=== PATIENT | male | born 1950 | race Caucasian/White ===

== ENCOUNTER 2019-05-16 12:19 | Emergency (ER) | payer OTHER ==
[2019-05-16] MEDS ORDERED: NA CHLORIDE 0.9% 500 ML ONE (13:17)
[2019-05-16 13:27] LABS: Absolute Lymphocytes (CBC) 0.9 K/uL (0.7-4.9); Basophils % 0.9 % (0-1.3); Hematocrit 38.5 % (39.6-49.0); Lymphocytes % 13.2 % (15.3-44.8); MPV 9.2 fL (7.6-11.3); RBC Red Blood Cell Count 4.23 M/uL (4.33-5.43)
[2019-05-16 13:48] LABS: Albumin 3.4 g/dL (3.4-5.0); Bilirubin Direct 0.2 mg/dL (0-0.2); Bilirubin Total 0.7 mg/dL (0.2-1.0); Potassium 3.7 mmol/L (3.5-5.1); Protein, Total 6.3 g/dL (6.4-8.2)
--- NOTE | 2019-05-16 14:41 | RAD REPORT ---
EXAM DESCRIPTION: CT - Abdomen Pelvis W Contrast - 05/16/2019 2:26 pm CLINICAL HISTORY: Abdominal pain COMPARISON: 2007 TECHNIQUE: Computed axial tomography of the abdomen pelvis was obtained. 100 cc Isovue-300 was admin istered intravenously. Oral contrast was not requested which limits evaluation of bowel. All CT scans are performed using dose optimization technique as appropriate and may include automated exposure control or mA/KV adjustment according to patient size. FINDINGS: The liver, spleen, pancreas, adrenal and kidneys appear unremarkable. There is no evidence of diverticulitis. Normal appendix Mild to moderate anterior subluxation L5 on S1. Spondylolysis L5. Degenerative changes involve verteb ral endplate of L1 Small inguinal hernias contain fat. Prostate gland mildly enlarged Moderate amount stool throughout the colon IMPRESSION: Moderate amount stool throughout the colon
--- NOTE | 2019-05-16 15:06 | ER ---
Nurse's Notes [facility] Name: Shelton Orr Age: 68 yrs Sex: Male : 1950 Arrival Date: 05/16/2019 Time: 12:21 Bed 19 Private MD: Diagnosis: Abdominal and pelvic pain;Constipation Presentation: 05/16 12:45 Presenting complaint: Patient states: Patient states he has had LUQ pain on and off ae4 over the last few weeks, and frequent belching. Transition of care: patient was not received from another setting of care. Onset of symptoms was May 09, 2019 at 08:00. Risk Assessment: Do you want to hurt yourself or someone else? Patient reports no desire to harm self or others. Initial Sepsis Screen: Does the patient meet any 2 criteria? No. Patient's initial sepsis screen is negative. Does the patient have a suspected source of infection? No. Patient's initial sepsis screen is negative. Care prior to arrival: None. 12:45 Method Of Arrival: Ambulatory ae4 12:45 Acuity: LEX 3 ae4 Triage Assessment: 13:06 Headache History: The patient has had previous headaches and this one is similar to ae4 previous episodes. General: Appears in no apparent distress. comfortable, well groomed, Behavior is calm, cooperative. Pain: Complains of pain in left upper quadrant Pain currently is 0 out of 10 on a pain scale. at worst was 3 out of 10 on a pain scale. Pain: Pain began gradually, 2-3 days ago. Also complains of nausea. Pain: Also complains of Belching. EENT: No signs and/or symptoms were reported regarding the EENT system. Neuro: Level of Consciousness is awake, alert, obeys commands, Oriented to person, place, time, situation, Appropriate for age. Cardiovascular: Patient's skin is warm and dry. Respiratory: Airway is patent Respiratory effort is even, unlabored, Respiratory pattern is regular, symmetrical, Breath sounds are clear bilaterally. GI: Abdomen is round Bowel sounds present X 4 quads. GI: Reports lower abdominal pain, gaseousness, nausea. : No signs and/or symptoms were reported regarding the genitourinary system. Denies burning with urination, urinary frequency. Derm: No signs and/or symptoms reported regarding the dermatologic system. Skin is pink, warm \T\ dry. Musculoskeletal: No signs and/or symptoms reported regarding the musculoskeletal system. Historical: - Allergies: 12:53 No Known Allergies; ae4 - Home Meds: 12:53 acyclovir 800 mg Oral tab [Active]; losartan 100 mg oral tab [Active]; meloxicam 15 mg ae4 oral tab [Active]; aspirin 81 mg Oral chew 2 tabs once daily [Active]; finasteride 5 mg oral tab 1 tab once daily [Active]; rosuvastatin 10 mg oral tab [Active]; amlodipine 5 mg tab [Active]; - PMHx: 12:53 Hypertension; ae4 - Immunization history:: Adult Immunizations up to date. - Social history:: Smoking status: Patient/guardian denies using tobacco. - Ebola Screening: : Patient negative for fever greater than or equal to 101.5 degrees Fahrenheit, and additional compatible Ebola Virus Disease symptoms. Screenin:06 Abuse screen: Denies threats or abuse. Nutritional screening: No deficits noted. ae4 Tuberculosis screening: No symptoms or risk factors identified. Fall Risk None identified. Assessment: 13:10 GI: Abd is soft and non tender. ae4 13:58 Reassessment: Patient appears in no apparent distress at this time. No changes from ae4 previously documented assessment. Patient and/or family updated on plan of care and expected duration. Pain level reassessed. Patient denies pain at this time. 15:00 Reassessment: No changes from previously documented assessment. Patient and/or family ae4 updated on plan of care and expected duration. Pain level reassessed. Patient denies pain at this time. Pain: Denies pain. 15:00 Reassessment: See full triage assessment. ae4 Vital Signs: 12:39 BP 145 / 72; Pulse 73; Resp 16; Temp 98(O); Pulse Ox 98% on R/A; Weight 86.18 kg (R); ae4 13:53 BP 139 / 83; Pulse 67; Resp 16; Pulse Ox 100% on R/A; ae4 ED Course: 12:21 Patient arrived in ED. as 12:38 Rafa Diehl RN is Primary Nurse. ae4 12:42 Glenn Morgan MD is Attending Physician. kdr 12:50 Triage completed. ae4 12:54 Bed in low position. Call light in reach. Side rails up X 1. Adult w/ patient. Pulse ox ae4 on. NIBP on. 13:05 Inserted saline lock: 20 gauge in right antecubital area, using aseptic technique. ae4 Blood collected. 13:06 Arm band placed on right wrist. ae4 14:26 CT Abd/Pelvis - IV Contrast Only In Process Unspecified. EDMS 15:19 No provider procedures requiring assistance completed. IV discontinued, intact, ae4 bleeding controlled, No redness/swelling at site. Pressure dressing applied. Administered Medications: 13:34 Drug: NS 0.9% 500 ml Route: IV; Rate: bolus; Site: right antecubital; 13:57 Follow up: IV Status: Completed infusion; IV Intake: 1000ml ae4 14:59 Follow up: IV Status: Completed infusion; IV Intake: 500ml ae4 Intake: 13:57 IV: 1000ml; Total: 1000ml. ae4 14:59 IV: 500ml; Total: 1500ml. ae4 Outcome: 15:05 Discharge ordered by . kdr 15:19 Discharged to home ambulatory. ae4 15:19 Condition: stable 15:19 Discharge instructions given to patient, significant other, Instructed on discharge instructions, follow up and referral plans. medication usage, Demonstrated understanding of instructions, Prescriptions given X 4. 15:20 Patient left the ED. ae4 Signatures: Dispatcher [employer] EDMS Jodie Bright, RN RN Glenn Morgan MD MD kdr Martinez, Amelia as Elliott, Andrea, RN RN ae4
--- NOTE | 2019-05-16 15:07 | EDPHYS ---
Physician Documentation [facility] Name: Shelton Orr Age: 68 yrs Sex: Male : 1950 Arrival Date: 05/16/2019 Time: 12:21 Bed 19 Private MD: ED Physician Glenn Morgan HPI: 05/16 14:11 This 68 yrs old Male presents to ER via Ambulatory with complaints of Abd kdr Pain > 50 y/o. 14:11 The patient presents with abdominal pain in the upper abdomen. Onset: The kdr symptoms/episode began/occurred gradually, 2 week(s) ago, and became persistent. The symptoms do not radiate. Associated signs and symptoms: Pertinent positives: nausea, Pertinent negatives: blood in stools, chest pain, constipation, diarrhea, dysuria, fever, headache, palpitations, shortness of breath, testicular pain, vomiting, vomiting blood, Belching. The symptoms are described as achy, crampy, intermittent, vague, waxing/waning. Modifying factors: The symptoms are alleviated by nothing, the symptoms are aggravated by nothing. Severity of pain: At its worst the pain was mild moderate in the emergency department the pain has improved moderately. The patient has not experienced similar symptoms in the past. The patient has not recently seen a physician. Historical: - Allergies: 12:53 No Known Allergies; ae4 - Home Meds: 12:53 acyclovir 800 mg Oral tab [Active]; losartan 100 mg oral tab [Active]; meloxicam 15 mg ae4 oral tab [Active]; aspirin 81 mg Oral chew 2 tabs once daily [Active]; finasteride 5 mg oral tab 1 tab once daily [Active]; rosuvastatin 10 mg oral tab [Active]; amlodipine 5 mg tab [Active]; - PMHx: 12:53 Hypertension; ae4 - Immunization history:: Adult Immunizations up to date. - Social history:: Smoking status: Patient/guardian denies using tobacco. - Ebola Screening: : Patient negative for fever greater than or equal to 101.5 degrees Fahrenheit, and additional compatible Ebola Virus Disease symptoms. ROS: 14:11 Constitutional: Negative for fever, chills, and weight loss, Eyes: Negative for injury, kdr pain, redness, and discharge, Neck: Negative for injury, pain, and swelling, Cardiovascular: Negative for chest pain, palpitations, and edema, Respiratory: Negative for shortness of breath, cough, wheezing, and pleuritic chest pain, Back: Negative for injury and pain, : Negative for injury, bleeding, discharge, and swelling, MS/Extremity: Negative for injury and deformity, Skin: Negative for injury, rash, and discoloration, Neuro: Negative for headache, weakness, numbness, tingling, and seizure activity. Psych: Negative for depression, anxiety, suicide ideation, homicidal ideation, and hallucinations, Allergy/Immunology: Negative for hives, rash, and allergies, Endocrine: Negative for neck swelling, polydipsia, polyuria, polyphagia, and marked weight changes, Hematologic/Lymphatic: Negative for swollen nodes, abnormal bleeding, and unusual bruising. 14:11 Abdomen/GI: Positive for abdominal pain, nausea, Negative for diarrhea, constipation, anorexia, dysphagia, hematemesis, black/tarry stool, rectal pain, rectal bleeding, bowel incontinence. Exam: 14:11 Constitutional: This is a well developed, well nourished patient who is awake, alert, kdr and in no acute distress. Head/Face: Normocephalic, atraumatic. Eyes: Pupils equal round and reactive to light, extra-ocular motions intact. Lids and lashes normal. Conjunctiva and sclera are non-icteric and not injected. Cornea within normal limits. Periorbital areas with no swelling, redness, or edema. Neck: Trachea midline, no thyromegaly or masses palpated, and no cervical lymphadenopathy. Supple, full range of motion without nuchal rigidity, or vertebral point tenderness. No Meningismus. Chest/axilla: Normal chest wall appearance and motion. Nontender with no deformity. No lesions are appreciated. Cardiovascular: Regular rate and rhythm with a normal S1 and S2. No gallops, murmurs, or rubs. Normal PMI, no JVD. No pulse deficits. Respiratory: Lungs have equal breath sounds bilaterally, clear to auscultation and percussion. No rales, rhonchi or wheezes noted. No increased work of breathing, no retractions or nasal flaring. Abdomen/GI: Soft, non-tender, with normal bowel sounds. No distension or tympany. No guarding or rebound. No evidence of tenderness throughout. Back: No spinal tenderness. No costovertebral tenderness. Full range of motion. Skin: Warm, dry with normal turgor. Normal color with no rashes, no lesions, and no evidence of cellulitis. MS/ Extremity: Pulses equal, no cyanosis. Neurovascular intact. Full, normal range of motion. Neuro: Awake and alert, GCS 15, oriented to person, place, time, and situation. Cranial nerves II-XII grossly intact. Motor strength 5/5 in all extremities. Sensory grossly intact. Cerebellar exam normal. Normal gait. Psych: Awake, alert, with orientation to person, place and time. Behavior, mood, and affect are within normal limits. Vital Signs: 12:39 BP 145 / 72; Pulse 73; Resp 16; Temp 98(O); Pulse Ox 98% on R/A; Weight 86.18 kg (R); ae4 13:53 BP 139 / 83; Pulse 67; Resp 16; Pulse Ox 100% on R/A; ae4 MDM: 14:11 Data reviewed: vital signs, nurses notes, lab test result(s), radiologic studies. kdr Counseling: I had a detailed discussion with the patient and/or guardian regarding: the historical points, exam findings, and any diagnostic results supporting the discharge/admit diagnosis, lab results, radiology results. 15:05 [facility] screened. [facility] 12:42 Order name: Basic Metabolic Panel; Complete Time: 14:09 [facility] 05/[facility] 12:42 Order name: CBC with Diff; Complete Time: 14:09 [facility] 05/16 12:42 Order name: Creatinine for Radiology; Complete Time: 14:09 [facility] 05/16 12:42 Order name: Hepatic Function; Complete Time: 14:09 [facility] 05/16 12:42 Order name: Lipase; Complete Time: 14:09 [facility] 05/16 13:04 Order name: CT Abd/Pelvis - IV Contrast Only; Complete Time: 14:59 [facility] 05/16 12:42 Order name: IV Saline Lock; Complete [facility]: 13:02 [facility] 05/16 12:42 Order name: Labs collected and sent; Complete Time: 13:02 kdr Administered Medications: 13:34 Drug: NS 0.9% 500 ml Route: IV; Rate: bolus; Site: right antecubital; ch 13:57 Follow up: IV Status: Completed infusion; IV Intake: 1000ml ae4 14:59 Follow up: IV Status: Completed infusion; IV Intake: 500ml ae4 Disposition: 05/16/19 15:06 Discharged to Home. Impression: Abdominal and pelvic pain, Constipation. - Condition is Stable. - Discharge Instructions: Constipation, Adult, [id number], Abdominal Pain, Adult, [id number]. - Prescriptions for Bentyl 20 mg Oral Tablet - take 1 tablet by ORAL route every 6 hours As needed; 20 tablet. Pepcid 20 mg Oral Tablet - take 1 tablet by ORAL route every 12 hours for 5 days; 10 tablet. Zofran 4 mg Oral Tablet - take 1 tablet by ORAL route every 12 hours As needed; 6 tablet. Miralax 17 gram/dose Oral - take 1 packet by ORAL route once daily dilute powder in 8 ounces of water or juice; 1 box. - Medication Reconciliation Form, Thank You Letter form. - Follow up: Private Physician; When: 2 - 3 days; Reason: If symptoms return, Further diagnostic work-up, Recheck today's complaints, Continuance of care, Re-evaluation by your physician. - Problem is new. - Symptoms have improved. Signatures: Dispatcher [employer] EDMS Jodie Bright RN RN ch Glenn Morgan MD MD kdr Rafa Diehl RN RN ae4 Corrections: (The following items were deleted from the chart) 15:20 15:06 05/16/2019 15:06 Discharged to Home. Impression: Abdominal and pelvic pain; ae4 Constipation. Condition is Stable. Forms are Medication Reconciliation Form, Thank You Letter, Antibiotic Education, Prescription Opioid Use. Follow up: Private Physician; When: 2 - 3 days; Reason: If symptoms return, Further diagnostic work-up, Recheck today's complaints, Continuance of care, Re-evaluation by your physician. Problem is new. Symptoms have improved. kdr
[2019-05-16 15:39] VITALS: TEMP 98
[2019-05-16 15:40] VITALS: BP 139/83; O2SAT 100
== END 2019-05-16 15:20 | disposition home or self-care (01) ==
LOC: ER 12:19
DX: K59.00 Constipation, unspecified (principal); I10 Essential (primary) hypertension; Z79.82 Long term (current) use of aspirin
CPT/HCPCS: 85025; 80048; 36415; 80076; 83690; 74177; 99284; Q9967; J7040

== ENCOUNTER 2021-06-15 06:53 | Day surgery (SDC) | payer OTHER ==
[2021-06-15] MEDS ORDERED: Ringers Lactate 1,000 ML IV ONE (07:12)
[2021-06-15] MEDS ORDERED: propofoL 200 MG/20 ML VIAL IV ONE (08:04)
--- NOTE | 2021-06-15 08:39 | ENDO RPT ---
[address], [address] COLONOSCOPY PROCEDURE REPORT EXAM DATE: 06/15/2021 PATIENT NAME: Shelton Orr MR #: [id number] BIRTHDATE: 1950 ATTENDING: Kerwin Armendariz MD STATUS: outpatient SUPERVISOR FACEPIECE LINE: Oumar Peters CST and Jennifer Self RN INDICATIONS: The patient is a 71 yr old Male here for a colonoscopy due to Cologuard positive and surveillance PROCEDURE PERFORMED: Colonoscopy MEDICATIONS: Per Anesthesia. ESTIMATED BLOOD LOSS: None CONSENT: The patient understands the risks and benefits of the procedure and understands that these risks include, but are not limited to: sedation, allergic reaction, infection, perforation and/or bleeding. Alternative means of evaluation and treatment include, among others: physical exam, x-rays, and/or surgical intervention. The patient elects to proceed with this endoscopic procedure. DESCRIPTION OF PROCEDURE: During intra-op preparation period all mechanical medical equipment was checked for proper function. Hand hygiene and appropriate measures for infection prevention was taken. Procedure, possible complications, alternatives including, but not limited to possibility of bleeding, perforation, tear, infection, sepsis, need for surgery, need for blood transfusion, were explained to the patient. After the risks, benefits and alternatives of the procedure were thoroughly explained, Informed consent was verified, confirmed and timeout was successfully executed by the treatment team. The patient was placed in the left lateral position. A digital rectal exam was performed and revealed external hemorrhoids. After appropriate level of anesthesia, the scope was passed. The [id number] ([id number]) endoscope was introduced through the anus and advanced to the cecum, which was identified by transillumination from the light source, the appendix, and the ileocecal valve. The quality of the prep was good. The instrument was then slowly withdrawn as the colon was fully examined. Scope withdrawal time was . COLON FINDINGS: Diverticula was found in the sigmoid colon. The opening was small. Retroflexed views revealed no abnormalities. The scope was then completely withdrawn from the patient and the procedure terminated. ADVERSE EVENTS: There were no complications. IMPRESSIONS: 1. Diverticula in the sigmoid colon 2. External hemorrhoids 3. Internal hemorrhoids RECOMMENDATIONS: follow-up: office 1-2 week(s) RECALL: Return in 5 year(s) for Colonoscopy. Kerwin Armendariz MD eSigned: Kerwin Armendariz MD 06/15/2021 8:39 AM cc: Kerwin Armendariz M.D. CPT CODES: ICD9 CODES: PATIENT NAME: Shelton Orr MR#: [id number]
[2021-06-15 10:10] VITALS: BP 144/75; TEMP 97.9; O2SAT 100
== END 2021-06-15 09:00 | disposition home or self-care (01) ==
LOC: OR 06:53
PROVIDERS: ATTEND Surgery
PROC: 0DJD8ZZ Inspection of Lower Intestinal Tract, Via Natural or Artificial Opening Endoscopic (ICD-10-PCS; principal; 2021-06-15 08:00)
DX: R19.5 Other fecal abnormalities (principal); K57.30 Diverticulosis of large intestine without perforation or abscess without bleeding; K64.4 Residual hemorrhoidal skin tags; K64.8 Other hemorrhoids; Z20.822 Contact with and (suspected) exposure to COVID-19
CPT/HCPCS: 45378; U0003; J2704; J7120

== ENCOUNTER 2021-08-03 18:18 | Emergency (ER) | payer OTHER ==
--- OUTSIDE RECORDS SUMMARY | 2021-08-03 18:23 | XMS REPORT | Continuity of Care Document ---
:1950 Author Organization [facility] t Address [address] Lozano. [address] [place] [id number] Care Team Providers Name Role Phone Russ Watkins MD. Primary Care Physician Raymundo Alvarado MD Attending Clinician Only, Test Attending Clinician Unavailable Jose JOHN Attending Clinician JOSE Attending Clinician Unavailable Raad OLMSTEAD, D Attending Clinician Unavailable Haroldo JOHN, Madhu Attending Clinician Madhu ZARCO Attending Clinician Unavailable Doctor Unassigned, Name Attending Clinician Unavailable UNKNOWN Attending Clinician Unavailable JIAN Attending Clinician Unavailable TANYA Attending Clinician Unavailable Only, Db Test Attending Clinician Unavailable Tanya PORTILLO Attending Clinician Prakash Watkins MD Attending Clinician Payers Payer Name Policy Type Policy Number Effective Date Expiration Date S ource Problems Condition Condition Condition Status Onset Resolution Last Treating Co mments Source Name Details Category Date Date Treatment Clinician Date Hyperlipid Hyperlipid Disease Active M ethodi emia LDL emia LDL 06-10 goal <70 goal <70 00:00: Hospit a 00 l Essential Essential Disease Active [facility] hypertensi hypertensi 06-10 st on on 00:00: Hospita 00 l VBI VBI Disease Active Methodi (vertebrob (vertebrob 06-10 asilar asilar 00:00: Hospita insufficie insufficie 00 l ncy) ncy) Allergies, Adverse Reactions, Alerts Allergy Allergy Status Severity Reaction(s) Onset Inactive Treating Comm ents Source Name Type Date Date Clinician [place] Nieves Active Itching Metho di in ty to 12-20 st adverse 00:00: Hospita reaction 00 l s to drug NO KNOWN Drug Active Univers ALLERGIE Class ity of S [facility] Social History Social Habit Start Date Stop Date Quantity Comments Source Exposure to Yes University of SARS-CoV-2 [facility] (event) Branch History SDOH [facility] Std Hospital Drinks History SDOH [facility] Alcohol Binge Hospital History SDMO [facility] Alcohol Comment Hospital Alcohol intake 2020-12-20 2020-12-20 Ex-drinker R[facility]arian 00:00:00 00:00:00 (finding) Hospital History [facility] 2020-07-12 2020-07-12 1 [facility]arian Alcohol Frequency 00:00:00 00:00:00 Hospita l Tobacco use and 2017-04-25 2017-04-25 Smokeless tobacco [facility] exposure 00:00:00 00:00:00 non-user Hospital Sex Assigned At [birth year] [facility] y of 00:00:00 00:00:00 [facility] Smoking Status Start Date Stop Date Source Unknown if ever smoked [facility] Never smoked tobacco [facility] Medications Ordered Filled Start Stop Current Ordering Indication Dosage Frequency Signature Comments Components Source Medication Medication Date Date Medication? Clinician (SIG) Name Name Xarelto 2.5 Yes TAKE ONE Me [facility] mg tablet 1-14 (1) st tablet 00:00: TABLET(S) Hospit a 00 BY MOUTH l TWICE A DAY. 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 Hospita tablet 25 l aspirin Yes 162mg QD Take 162 Metho di (ECOTRIN) 8-[address] 81 MG 10:49: mouth Hospita enteric 25 daily. l coated tablet cyanocobala Yes 5000ug Take 5,000 Methodi min, 8-[address] vitamin 10:49: mouth. Hospita B-12, 5,000 25 l mcg tablet,disi ntegrating cholecalcif Yes 2000U QD Take 2,000 Methodi ariel, 8-[address] vitamin D3, 10:49: mouth Hospi ta (VITAMIN 25 daily. l D3) 2,000 unit capsule capsule finasteride Yes 5mg QD Take 5 mg M ethodi (PROSCAR) [address] mg tablet 00:00: daily. Hospit a 00 l losartan 2020- No 100mg QD Take 100 Met hodi (COZAAR) 2- 02-[address] 100 MG 11:54: 00:00 mouth Hospita tablet 11 :00 daily. l losartan-hy 2021- No 1{tbl} QD Take 1 M ethodi drochloroth - 02-[address] iazide 00:00: 05:59 mouth Hospita (Hyzaar) 00 :00 daily. l 100-25 mg per tablet rivaroxaban 2021- No 2.5mg Q.5D Take 1 [facility] (Xarelto) -10 06-[address] 2.5 mg 00:00: 00:00 (2.5 mg Hospita tablet 00 :00 total) by l tablet mouth 2 (two) times a day. Immunizations Ordered Filled Immunization Date Status Comments [facility] e Immunization Name Name SARS-COV-2 COVID-19 2020-08-17 Completed Unive rsity of PFIZER VACCINE 00:00:00 [facility] SARS-COV-2 COVID-19 2020-08-17 Completed Unive rsity of PFIZER VACCINE 00:00:00 [facility] SARS-COV-2 COVID-19 2020-08-17 Completed Unive rsity of PFIZER VACCINE 00:00:00 [facility] SARS-COV-2 COVID-19 2020-08-17 Completed Unive rsity of PFIZER VACCINE 00:00:00 [facility] SARS-COV-2 COVID-19 2020-08-17 Completed Unive rsity of PFIZER VACCINE 00:00:00 [facility] SARS-COV-2 COVID-19 2020-07-21 Completed Unive rsity of PFIZER VACCINE 00:00:00 [facility] SARS-COV-2 COVID-19 2020-07-21 Completed Unive rsity of PFIZER VACCINE 00:00:00 [facility] SARS-COV-2 COVID-19 2020-07-21 Completed Unive rsity of PFIZER VACCINE 00:00:00 [facility] SARS-COV-2 COVID-19 2020-07-21 Completed Unive rsity of PFIZER VACCINE 00:00:00 [facility] SARS-COV-2 COVID-19 2020-07-21 Completed Unive rsity of PFIZER VACCINE 00:00:00 [facility] SARS-COV-2 COVID-19 2020-06-30 Completed Unive rsity of PFIZER VACCINE 00:00:00 [facility] SARS-COV-2 COVID-19 2020-06-30 Completed Unive rsity of PFIZER VACCINE 00:00:00 [facility] SARS-COV-2 COVID-19 2020-06-30 Completed Unive rsity of PFIZER VACCINE 00:00:00 [facility] SARS-COV-2 COVID-19 2020-06-30 Completed Unive rsity of PFIZER VACCINE 00:00:00 [facility] SARS-COV-2 COVID-19 2020-06-30 Completed Unive rsity of PFIZER VACCINE 00:00:00 [facility] Influenza High Dose 2018-04-30 Completed Unive rsity of 00:00:00 [facility] Influenza High Dose 2018-04-30 Completed Unive rsity of 00:00:00 [facility] Influenza High Dose 2018-04-30 Completed Unive rsity of 00:00:00 [facility] Influenza High Dose 2018-04-30 Completed Unive rsity of 00:00:00 [facility] Influenza High Dose 2018-04-30 Completed Unive rsity of 00:00:00 [facility] Influenza High Dose 2017-05-08 Completed Unive rsity of 00:00:00 [facility] Pneumococcal 13 2017-05-08 Completed Universit y of Conjugate, PCV13 00:00:00 [place] [facility] (Prevnar 13) Branch Influenza High Dose 2017-05-08 Completed Unive rsity of 00:00:00 [facility] Pneumococcal 13 2017-05-08 Completed Universit y of Conjugate, PCV13 00:00:00 [facility] dical (Prevnar 13) Branch Influenza High Dose 2017-05-08 Completed Unive rsity of 00:00:00 [facility] Pneumococcal 13 2017-05-08 Completed Universit y of Conjugate, PCV13 00:00:00 [facility] dical (Prevnar 13) Branch Influenza High Dose 2017-05-08 Completed Unive rsity of 00:00:00 [facility] Pneumococcal 13 2017-05-08 Completed Universit y of Conjugate, PCV13 00:00:00 [facility] dical (Prevnar 13) Branch Influenza High Dose 2017-05-08 Completed Unive rsity of 00:00:00 [facility] Pneumococcal 13 2017-05-08 Completed Universit y of Conjugate, PCV13 00:00:00 [facility] dical (Prevnar 13) Branch Influenza High Dose 2015-04-22 Completed Unive rsity of 00:00:00 [facility] Influenza High Dose 2015-04-22 Completed Unive rsity of 00:00:00 [facility] Influenza High Dose 2015-04-22 Completed Unive rsity of 00:00:00 [facility] Influenza High Dose 2015-04-22 Completed Unive rsity of 00:00:00 [facility] Influenza High Dose 2015-04-22 Completed Unive rsity of 00:00:00 [facility] Pneumococcal 2014-04-20 Completed University o f Polysaccharide, 00:00:00 [place] [facility] PPSV23 (PNEUMOVAX) Branch Pneumococcal 2014-04-20 Completed University o f Polysaccharide, 00:00:00 [place] [facility] PPSV23 (PNEUMOVAX) Branch Pneumococcal 2014-04-20 Completed University o f Polysaccharide, 00:00:00 [place] [facility] PPSV23 (PNEUMOVAX) Branch Pneumococcal 2014-04-20 Completed University o f Polysaccharide, 00:00:00 [place] [facility] PPSV23 (PNEUMOVAX) Branch Pneumococcal 2014-04-20 Completed University o f Polysaccharide, 00:00:00 [place] [facility] PPSV23 (PNEUMOVAX) Branch Influenza Virus 2014-03-25 Completed Universit y of Vaccine (3+ yrs) 00:00:00 [facility] Influenza Virus 2014-03-25 Completed Universit y of Vaccine (3+ yrs) 00:00:00 [facility] Influenza Virus 2014-03-25 Completed Universit y of Vaccine (3+ yrs) 00:00:00 [facility] Influenza Virus 2014-03-25 Completed Universit y of Vaccine (3+ yrs) 00:00:00 [facility] Influenza Virus 2014-03-25 Completed Universit y of Vaccine (3+ yrs) 00:00:00 [facility] Influenza Virus 2012-03-05 Completed Universit y of Vaccine (3+ yrs) 00:00:00 [facility] Influenza Virus 2012-03-05 Completed Universit y of Vaccine (3+ yrs) 00:00:00 [facility] Influenza Virus 2012-03-05 Completed Universit y of Vaccine (3+ yrs) 00:00:00 [facility] Influenza Virus 2012-03-05 Completed Universit y of Vaccine (3+ yrs) 00:00:00 [facility] Influenza Virus 2012-03-05 Completed Universit y of Vaccine (3+ yrs) 00:00:00 [facility] Influenza Virus 2011-02-28 Completed Universit y of Vaccine (3+ yrs) 00:00:00 [facility] Tetanus/Diptheria 2011-02-28 Completed Univers ity of 00:00:00 [facility] Influenza Virus 2011-02-28 Completed Universit y of Vaccine (3+ yrs) 00:00:00 [facility] Tetanus/Diptheria 2011-02-28 Completed Univers ity of 00:00:00 [facility] Influenza Virus 2011-02-28 Completed Universit y of Vaccine (3+ yrs) 00:00:00 [facility] Tetanus/Diptheria 2011-02-28 Completed Univers ity of 00:00:00 [facility] Influenza Virus 2011-02-28 Completed Universit y of Vaccine (3+ yrs) 00:00:00 [facility] Tetanus/Diptheria 2011-02-28 Completed Univers ity of 00:00:00 [facility] Influenza Virus 2011-02-28 Completed Universit y of Vaccine (3+ yrs) 00:00:00 [facility] dical Branch Tetanus/Diptheria 2011-02-28 Completed Univers ity of 00:00:00 [facility] Vital Signs Vital Name Observation Time Observation Value Comments Source Systolic blood 2020-12-20 15:48:00 142 mm[Hg] [facility] pressure Diastolic blood 2020-12-20 15:48:00 81 mm[Hg] [facility] [place] pressure Heart rate 2020-12-20 15:48:00 72 /min [facility] Body temperature 2020-12-20 15:48:00 36.44 Mirella [facility] Respiratory rate 2020-12-20 15:48:00 18 /min [facility] Body height 2020-12-20 15:48:00 182.9 cm [facility] Body weight 2020-12-20 15:48:00 88.4 kg [facility] BMI 2020-12-20 15:48:00 26.43 kg/m2 [facility] Procedures Procedure Date / Time Performing Clinician Source Performed ASSIGNMENT OF BENEFITS 2021-02-10 15:37:54 Doctor Unassigned, Un [facility] COVID-19 (MOLECULAR 2021-02-02 17:30:00 Horace Garcia [facility] TESTING Medical Branch NUCLEIC ACID AMPLIFICATION) LAB ONLY COVID 2021-02-02 17:30:00 Horace Garcia [facility] INTERPRETATION [facility] Branch XR CHEST 2 VW 2020-12-20 17:55:00 [facility] XR SINUSES 3+ VW 2020-12-20 17:55:00 [facility] US CAROTID DUPLEX 2020-12-20 16:00:00 [facility] BILATERAL PV TRANSCRANIAL DOPPLER 2020-12-20 16:00:00 [facility] INTRACRANIAL ARTERIES COMPLETE US CAROTID DUPLEX 2020-07-12 18:00:00 [facility] BILATERAL PV TRANSCRANIAL DOPPLER 2020-07-12 18:00:00 [facility] INTRACRANIAL ARTERIES COMPLETE Plan of Care Planned Activity Planned Date Details Comments Source Future Scheduled 2021-06-04 Hepatitis C screening [facility] Test 02:08:40 (procedure) [code = [id number]] Future Scheduled 2021-06-04 COLONOSCOPY SCREENING [facility] Hospital Test 02:08:40 [code = COLONOSCOPY SCREENING] Future Scheduled 2021-06-04 SHINGLES VACCINES Method [facility] Hospital Test 02:08:40 (#1) [code = SHINGLES VACCINES (#1)] Future Scheduled 2021-06-[address] Method [facility] Hospital Test 02:08:40 [code = INFLUENZA VACCINE] Encounters Start End Encounter Admission Attending Care Care Encounter Source Date/Time Date/Time Type Type Clinicians Facility Department ID 2021-06-02 2021-06-02 Refill Negrito Alvarado 1.2.840.1 [id number] Methodi 00:00:00 00:00:[id number] 3.430.2.7 Hospit a .3.803648 l .8 2021-02-14 2021-02-14 Laboratory Only, Adc Test [facility] 1.2.840. 114 [id number] Univers 08:44:49 08:59:49 Only [place]ia [place] [id number] [facility] 4.2.7.2.686 [facility] [id number] [facility] [address] [place] 2021-02-14 2021-02-14 Outpatient R [facility] [id number] Univers 08:30:00 08:30:00 [id number] [facility] 2021-02-14 2021-02-14 Outpatient R JOSE [facility] [id number] Univers 08:30:00 08:30:00 SOPHIA [facility] 2021-02-11 2021-02-11 Telephone NEGRITO Shankar [id number] Univers 00:00:00 00:00:00 Carlyn HORNE [id number] i [facility] 4.2.7.2.686 [facility] [id number] [facility] 019 Branch 2021-02-10 2021-02-10 Laboratory Only, Adc Test [facility] 1.2.840. 114 [id number] Univers 10:37:21 10:52:21 Only Denys Zarco [id number] ity of [place] 4.2.7.2.686 [facility] [id number] [facility] 353 Branch 2021-02-10 2021-02-10 Outpatient R [facility] [id number] Univers 10:30:00 10:30:00 [id number] [facility] 2021-02-10 2021-02-10 [facility] [id number] Univers 10:30:00 10:30:00 DENYS [facility] 2021-02-10 2021-02-10 Outpatient [facility] [id number] Univers 00:00[facility]00 [facility]10 2021-02-10 Orders Doctor MAHAN [id number] Univers 00:00:00 00:00:00 Only Unassigned, COLEEN [id number] ity of [facility] 4.2.7.2.686 Ari [id number] [facility] 009 Branch 2021-02-08 2021-02-08 Outpatient R [facility] [id number] Univers 16:00:00 16:00:00 [id number] [facility] 2021-02-08 2021-02-08 Outpatient R DANIS, [facility] [id number] Univers 16:00:00 16:00:00 ATTENDING [facility] 2021-02-08 2021-02-08 Outpatient R JIAN [facility] [id number] Univers 15:45:00 15:49:18 SIDRA [facility] 2021-02-05 2021-02-05 Outpatient R [facility] [id number] Univers 10:00:00 10:00:00 [id number] [facility] 2021-02-05 2021-02-05 [facility] [id number] Univers 10:00:00 10:00:00 DENYS [facility] 2021-02-02 2021-02-02 Outpatient R TANYA [facility] [id number] Univers 12:30:00 13:06:51 JULI [facility] 2021-02-02 2021-02-02 Laboratory Only, Ang Db Test [facility] 1.2.8 40.114 [id number] [facility] 12:19:32 13:06:51 Only Juli [facility] [id number] [facility] 4.2.7.2.686 Ari as Ed?Blea [id number] [address] Medical Office Building 2020-12-20 2020-12-20 [facility], 1.2.840.1 [id number] Methodi 12:30:43 23:59:00 Encounter Nava SolanoKeith [id number] 3.430.2.7 Hospit a .3.655570 l .8 2020-12-20 2020-12-20 [facility], 1.2.840.1 [id number] Methodi 12:30:24 23:59:00 Encounter Nava SolanoKeith [id number] 3.430.2.7 Hospit a .3.395210 l .8 2020-12-20 2020-12-20 Office Negrito Alvarado 1.2.840.1 [id number] Methodi 10:46:23 11:43:00 Visit Raymundo [id number] 3.430.2.7 Hospit a .3.845320 l .8 2020-12-20 2020-12-20 [facility], 1.2.840.1 [id number] Methodi 00:00:00 00:00:00 Only Nava SolanoKeith 83467.1.1 005 s t 3.430.2.7 Hospit a .3.743108 l .8 2020-12-20 2020-12-20 Travel 1.2.840.1 [id number] [id number] Methodi 00:00:00 00:00:[address] 3.430.2.7 0.2.7.3.698 Ho spita .3.950088 084.8 l .8 2020-07-12 2020-07-12 Office Negrito Alvarado 1.2.840.1 [id number] Methodi 10:23:42 13:18:41 Visit Raymundo [id number] 3.430.2.7 Hospit a .3.747174 l .8 2020-07-12 2020-07-12 Travel 1.2.840.1 [id number] [id number] Methodi 00:00:00 00:00:[id number] 3.430.2.7 0.2.7.3.698 Ho spita .3.853928 084.8 l .8 Results This patient has no known results.
[2021-08-03] MEDS ORDERED: LIDOCAINE 1% 20 ML MDV ONE (19:24)
[2021-08-03] MEDS ORDERED: BUPIVACAINE 0.5% PF 10 ML VIAL ONE (19:24)
--- NOTE | 2021-08-03 19:41 | RAD REPORT ---
EXAM DESCRIPTION: RAD -Hand Left 3 View - 08/03/2021 7:24 pm CLINICAL HISTORY: Left hand pain status post injury FINDINGS: No fracture or dislocation is seen. 7 millimeter curvilinear foreign body lies adjacent to the first distal phalanx. Soft tissue laceration thenar eminence. Screw has been placed into the second proximal phalanx
--- NOTE | 2021-08-03 20:19 | EDPHYS ---
Physician Documentation [facility] Name: Shelton Orr Age: 71 yrs Sex: Male : 1950 Arrival Date: 08/03/2021 Time: 18:26 Bed 20 Private MD: ED Physician Florentino Patel HPI: 08/03 18:50 This 71 yrs old Male presents to ER via Ambulatory with complaints of Laceration To cp Hand. 18:50 The patient has a laceration occurred outdoors, The injury was accidental. The cp laceration(s) is(are) located on the right hand. Onset: The symptoms/episode began/occurred just prior to arrival. 18:50 Associated signs and symptoms: Pertinent positives: active bleeding, Pertinent cp negatives: numbness distal to injury. 18:50 Patient reports injury to left hand caused by sharp edge of fence. cp Historical: - Allergies: 18:34 No Known Allergies; ag7 - Home Meds: 18:34 Aspirin Oral [Active]; Xarelto oral [Active]; ag7 - PMHx: 18:35 Cerebrovascular accident; ag7 - PSHx: 18:35 hand surgery; foot surgery; right hand surgery; ag7 - Immunization history:: Client reports receiving the 2nd dose of the Covid vaccine, Last tetanus immunization: < 5 years ago Flu vaccine is up to date. - Social history:: Smoking status: Patient denies any tobacco usage or history of. ROS: 19:00 Skin: Positive for laceration(s), of the left hand. cp 19:00 Constitutional: Negative for body aches, chills, fever, poor PO intake. cp 19:00 Cardiovascular: Negative for chest pain, palpitations. 19:00 Respiratory: Negative for cough, shortness of breath, wheezing. 19:00 Abdomen/GI: Negative for abdominal pain, nausea, vomiting, and diarrhea. 19:00 All other systems are negative. Exam: 19:05 Constitutional: The patient appears in no acute distress, alert, awake, non-toxic, well cp developed, well nourished. 19:05 Head/Face: Normocephalic, atraumatic. cp 19:05 Cardiovascular: Rate: normal. cp 19:05 Respiratory: the patient does not display signs of respiratory distress, Respirations: normal, no use of accessory muscles. 19:05 Musculoskeletal/extremity: Extremities: grossly normal except: noted in the web space cp of left thumb and left index finger: laceration, swelling, tenderness, ROM: full active range of motion, in the left hand, Perfusion: the extremity is normally perfused throughout, Sensation intact. Tendon exam: specific tendon testing normal through active and passive range of motion Vital Signs: 18:29 BP 183 / 107; Pulse 73; Resp 20 S; Temp 98.1(TE); Pulse Ox 99% on R/A; Weight 88.45 kg ag7 (R); Height 6 ft. (182.88 cm) (R); Pain 1/10; 19:26 BP 156 / 99; ladarius 20:29 BP 167 / 85; Pulse 67; Resp 18; Temp 98.5; Pulse Ox 100% on R/A; Pain 0/10; ladarius 18:29 Body Mass Index 26.45 (88.45 kg, 182.88 cm) ag7 Laceration: 20:20 Wound Repair of 5.5cm ( 2.2in ) subcutaneous laceration to web space of left thumb and cp left index finger. Irregularly shaped.. Skin/tissue flap noted.. Distal neuro/vascular/tendon intact. Anesthesia: Wound infiltrated with 6 mls of 1% lidocaine. Wound prep: Moderate cleansing by me, Wound irrigation by me. Skin closed with 7 4-0 Prolene using interrupted sutures and sterile technique. Dressed with Bacitracin, 4x4's. Patient tolerated well. MDM: 19:00 Differential diagnosis: superficial laceration, tendon injury, vascular injury. cp 19:22 Patient medically screened. cp 20:18 Data reviewed: vital signs, nurses notes, radiologic studies, plain films. cp 20:18 Test interpretation: by ED physician or midlevel provider: plain radiologic studies. cp Counseling: I had a detailed discussion with the patient and/or guardian regarding: the historical points, exam findings, and any diagnostic results supporting the discharge/admit diagnosis, radiology results, the need for outpatient follow up, a family practitioner, to return to the emergency department if symptoms worsen or persist or if there are any questions or concerns that arise at home. Response to treatment: the patient's symptoms have markedly improved after treatment, and as a result, I will discharge patient. 08/03 18:37 Order name: XRAY Hand LEFT 3 View; Complete Time: 19:50 cp 08/03 19:51 Interpretation: Report reviewed. cp 08/03 18:41 Order name: Dressing - Wound; Complete Time: 19:26 cp 08/03 18:41 Order name: Gloves, Sterile; Complete Time: 19:50 cp 08/03 18:41 Order name: Setup Suture Tray; Complete Time: 19:26 cp 08/03 20:17 Order name: Wound dressing; Complete Time: 20:40 cp Administered Medications: 20:38 Drug: Bupivacaine (0.5 %) 10 ml {Note: given by provider.} Volume: 10 ml; Route: lr4 Infiltration; 20:38 Follow up: Response: No adverse reaction lr4 20:38 Drug: Lidocaine (1 %) 10 ml Volume: 20 ml; Route: Infiltration; lr4 20:38 Follow up: Response: No adverse reaction lr4 Disposition: 08/04 08:33 Co-signature as Attending Physician, Florentino ADHIKARI was present in the Emergency ms3 Department for consultation. Disposition Summary: 08/03/21 20:18 Discharge Ordered Location: Home cp Problem: new cp Symptoms: have improved cp Condition: Stable cp Diagnosis - Laceration without foreign body of left hand, initial encounter cp Followup: cp - With: Private Physician - When: 10 - 14 days - Reason: Staple/Suture removal Discharge Instructions: - Discharge Summary Sheet cp - Laceration Care, Adult cp Forms: - Medication Reconciliation Form cp - Thank You Letter cp - Antibiotic Education cp - Prescription Opioid Use cp Prescriptions: - Cephalexin 500 mg Oral Capsule - take 1 capsule by ORAL route every 8 hours for 10 days; 30 capsule; Refills: 0, cp Product Selection Permitted Signatures: Dispatcher [employer] EDOK Singh Smith PA PA cp Florentino Patel DO DO ms3 Josey Pickard RN RN lr4 Nicole Garcia RN RN ag7 Corrections: (The following items were deleted from the chart) 08/03 18:38 18:34 PMHx: Hypertension; ag7 ag7 18:38 18:35 PMHx: stroke; ag7 ag7
--- NOTE | 2021-08-03 20:19 | ER ---
Nurse's Notes [facility] Name: Shelton Orr Age: 71 yrs Sex: Male : 1950 Arrival Date: 08/03/2021 Time: 18:26 Bed 20 Private MD: Diagnosis: Laceration without foreign body of left hand, initial encounter Presentation: 08/03 18:29 Chief complaint: Patient states: Patient, report pulling the chain from the boat and ag7 the tension of the chain with the fence cut the left palm hand. Coronavirus screen: Client denies travel out of the [place] in the last 14 days. At this time, the client does not indicate any symptoms associated with coronavirus-19. Ebola Screen: No symptoms or risks identified at this time. Complicating Factors: laceration. Initial Sepsis Screen: Does the patient meet any 2 criteria? No. Patient's initial sepsis screen is negative. Does the patient have a suspected source of infection? No. Patient's initial sepsis screen is negative. Risk Assessment: Do you want to hurt yourself or someone else? Patient reports no desire to harm self or others. Onset of symptoms was August 03, 2021. 18:29 Method Of Arrival: Ambulatory ag7 18:29 Acuity: LEX 3 ag7 Triage Assessment: 18:38 General: Appears in no apparent distress. Behavior is calm, cooperative, appropriate ag7 for age. Pain: Complains of pain in left hand Pain does not radiate. Pain currently is 1 out of 10 on a pain scale. Quality of pain is described as stinging, Pain began suddenly, Is continuous. Injury Description: Laceration sustained to left hand is jagged, 0.5 to 2.5 cm long, small amount of bleeding was sustained 1-2 hours ago. is bleeding a small amount. Historical: - Allergies: 18:34 No Known Allergies; ag7 - Home Meds: 18:34 Aspirin Oral [Active]; Xarelto oral [Active]; ag7 - PMHx: 18:35 Cerebrovascular accident; ag7 - PSHx: 18:35 hand surgery; foot surgery; right hand surgery; ag7 - Immunization history:: Client reports receiving the 2nd dose of the Covid vaccine, Last tetanus immunization: < 5 years ago Flu vaccine is up to date. - Social history:: Smoking status: Patient denies any tobacco usage or history of. Screenin:47 Abuse screen: Denies threats or abuse. Denies injuries from another. Nutritional ladarius screening: No deficits noted. Tuberculosis screening: No symptoms or risk factors identified. Fall Risk None identified. Assessment: 19:22 Reassessment: No changes from previously documented assessment. Recv'd pt to room 20 at ladarius this time. 20:30 General: I cleaned the pt's left hand, after the sutures were placed, with NS. I placed ladarius triple abx on the lac, 4x4 and coban. The pt tolerated this well. . Vital Signs: 18:29 BP 183 / 107; Pulse 73; Resp 20 S; Temp 98.1(TE); Pulse Ox 99% on R/A; Weight 88.45 kg ag7 (R); Height 6 ft. (182.88 cm) (R); Pain 1/10; 19:26 BP 156 / 99; ladarius 20:29 BP 167 / 85; Pulse 67; Resp 18; Temp 98.5; Pulse Ox 100% on R/A; Pain 0/10; ladarius 18:29 Body Mass Index 26.45 (88.45 kg, 182.88 cm) ag7 ED Course: 18:26 Patient arrived in ED. mr 18:28 Singh Smith PA is PHCP. cp 18:28 Florentino Patel DO is Attending Physician. cp 18:34 Triage completed. ag7 18:41 Arm band placed on right wrist. ag7 18:55 Wound care: to laceration located on left hand was dressed with 4X4s, Kerlix, Patient jd3 tolerated well. 19:22 Erica Rasmussen, RN is Primary Nurse. ladarius 19:24 XRAY Hand LEFT 3 View In Process Unspecified. EDMS 19:47 Bed in low position. Call light in reach. Side rails up X 1. ladarius 19:47 No provider procedures requiring assistance completed. ladarius Administered Medications: 20:38 Drug: Bupivacaine (0.5 %) 10 ml {Note: given by provider.} Volume: 10 ml; Route: lr4 Infiltration; 20:38 Follow up: Response: No adverse reaction lr4 20:38 Drug: Lidocaine (1 %) 10 ml Volume: 20 ml; Route: Infiltration; lr4 20:38 Follow up: Response: No adverse reaction lr4 Outcome: 19:48 Condition: stable ladarius 20:18 Discharge ordered by . jose a 20:52 Patient left the ED. ladarius Signatures: Dispatcher [employer] CRISTOBAL Mohini Ellis Singh Smith PA PA cp Davies, Jonathon, RN RN jd3 Erica Rasmussen RN Josey Kaur RN RN lr4 Nicole Garcia RN RN ag7 Corrections: (The following items were deleted from the chart) 18:38 18:34 PMHx: Hypertension; ag7 ag7 18:38 18:35 PMHx: stroke; ag7 ag7 19:14 19:14 Wound care: to laceration located on left hand was dressed with 4X4s, Kerlix, jd3 Patient tolerated well. jd3
[2021-08-03 20:59] VITALS: BP 167/85; TEMP 98.5; O2SAT 100
== END 2021-08-03 20:52 | disposition home or self-care (01) ==
LOC: ER 18:18
PROC: 0JQK0ZZ Repair Left Hand Subcutaneous Tissue and Fascia, Open Approach (ICD-10-PCS; principal; 2021-08-03)
DX: S61.412A Laceration without foreign body of left hand, initial encounter (principal); W26.8XXA Contact with other sharp object(s), not elsewhere classified, initial encounter; Z86.73 Personal history of transient ischemic attack (TIA), and cerebral infarction without residual deficits; Z79.01 Long term (current) use of anticoagulants; Z79.82 Long term (current) use of aspirin
CPT/HCPCS: 99283